=== PATIENT | male | born 1950 | race Caucasian/White ===

== ENCOUNTER 2017-02-07 06:16 | Day surgery (SDC) | payer MEDICARE ==
[~2017-02-07] VITALS: Ht 167.6 cm; Wt 103.0 kg
[~2017-02-07 06:16] MED LIST: ASPIRIN 81MG TA81 MG PO; ATENOLOL50 MG PO; DIABETA5 MG PO; HUMALOG MIX75/253 ML SC; ISOSORBIDE MONO30 MG PO; LISINOPRIL 10MG10 MG PO; MULTIVITAMIN1 SGL PO; TRADJENTA5 MG PO
[2017-02-07 12:33] VITALS: BP 146/80
--- NOTE | 2017-02-11 14:28 | Operative Note ---
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 The eyes were protected with Steri-Strips. The lesion on the nasal dorsum measured 2.4 cm. The perilesional area was infiltrated with 3 mL of 2 percent lidocaine containing epinephrine. The markup was incised and the lesion was excised and submitted. Bleeding was stopped with bipolar cautery. Flaps were elevated and a tissue rearrangement geometric plastic repair was done with interrupted 5-0 Vicryl and 5-0 nylon sutures. A Dermabond dressing was applied. EBL (ml): 1 Specimens obtained: Same as above at 2891
== END 2017-02-07 10:12 | disposition home or self-care (01) ==
LOC: SDC 06:16
PROVIDERS: Otolaryngology
PROC: 0HB1XZX Excision of Face Skin, External Approach, Diagnostic (ICD-10-PCS; principal; 2017-02-07 08:00)
DX: C44.311 Basal cell carcinoma of skin of nose (principal); E11.9 Type 2 diabetes mellitus without complications